=== PATIENT | female | born 1995 | race African-American/Black ===

== ENCOUNTER 2020-04-06 07:44 | Emergency (ER) | payer MEDICAID ==
[~2020-04-06] VITALS: Ht 162.6 cm; Wt 54.9 kg
[2020-04-06 08:11] VITALS: BP 135/90
--- NOTE | 2020-04-06 08:12 | NUR ---
Nurse Note: Pt arrived c/o medication refill for some STI medication prescribed at [facility]. Pt stated she was tested for STI couple days ago and was tested postive for 5 different STI; pt unable to state which one. Pt denies s/s but is adamant about having STIs. On inital interview, pt was vauge, did not make eye contact. Pt stated she does not want to be here and is going back to [facility]. ERMD went to pt side but pt walked out.
--- NOTE | 2020-04-06 08:40 | Emergency Room Report ---
History of Present Illness General Chief Complaint: Medication Refill Source: Patient Present Illness HPI Patient presented requesting medication refill. Apparently she was seen at [facility]. She lost the prescription for the antibiotics that she was prescribed. When I went to take a history from the patient she said that she did not want to stay in the hospital here and insisted on leaving. 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 Patient History Limited by: other - Patient refuses to answer Past Medical History: see triage record Social History Narrative Lives in an apartment Last Menstrual Period: 3 days ago Reviewed Nursing Documentation: PMH: Agreed; PSxH: Agreed Review of Systems All Other Systems: limited Physical Exam Vital Signs Date Time Temp Pulse Resp B/P (MAP) Pulse Ox O2 Delivery O2 Flow Rate FiO2 04/06/20 07:52 98.1 86 19 135/90 (105) 95 Room Air Sp02 EP Interpretation: reviewed, normal General Appearance: well appearing, no apparent distress, alert, non-toxic Head: normocephalic Eyes: bilateral eye normal inspection, bilateral eye PERRL ENT: other - Wearing mask Neck: normal inspection Respiratory: normal inspection Gastrointestinal: normal inspection - Fully dressed Genitourinary: deferred - Patient refused exam Musculoskeletal: gait/station normal Neurologic: alert, grossly normal Psychiatric: other - Pressured and refusing further care Skin: normal color, other - Fully dressed Medical Decision Making Diagnostic Impression: Primary Impression: Encounter for medication refill ER Course Patient presented requesting a refill of antibiotics for possible sexually transmitted disease. Patient refused to stay for further evaluation. Advised patient of risk of however she is insistent on leaving. Patient states she is going to [facility]. Status: unchanged Disposition: AGAINST MEDICAL ADVICE Condition: Unknown Referrals: NOT CHOSEN IPA/,REFERRING (PCP) Ruddy Bolden MD Apr 06, 2020 08:40
== END 2020-04-06 08:12 | disposition left against medical advice (07) ==
LOC: EMR 08:12
DX: Z76.0 Encounter for issue of repeat prescription (principal); Z53.29 Procedure and treatment not carried out because of patient's decision for other reasons
CPT/HCPCS: 99281